=== PATIENT | female | born 1990 | race Caucasian/White ===

== ENCOUNTER 2020-09-28 23:08 | Emergency (ER) | payer MEDICAID ==
[~2020-09-28] VITALS: Ht 157.5 cm; Wt 98.9 kg
[~2020-09-28 23:08] MED LIST: CEPHALEXIN500 MG ORAL; IBUPROFEN600 M1 ORAL; ROBAXIN-750750 MG PO
--- NOTE | 2020-09-28 23:20 | NUR ---
ED Nurse Note: pt from home complaints of abdominal pain, and nausea since 4am after helping somenone move, hx of umbilical hernia post 2016 no other health hx, vitals stable, ambulatory, aox4
[2020-09-28 23:37] VITALS: BP 110/78
--- NOTE | 2020-09-28 23:41 | NUR ---
ED Nurse Note:blood and urine specimen drawn and sent to lab
[2020-09-28 23:48] LABS: APPEARANCE,URINE CLEAR; BILIRUBIN, URINE NEGATIVE (NEGATIVE); GLUCOSE, URINE (UA) NEGATIVE (NEGATIVE); KETONES,URINE NEGATIVE (NEGATIVE); LEUKOCYTE ESTERASE ,URINE 3+ (NEGATIVE); NITRITE,URINE NEGATIVE (NEGATIVE); PH,URINE 6.5 (4.5-8.0); PROTEIN,URINE NEGATIVE (NEGATIVE); UROBILINOGEN,URINE 1 MG/DL (0.0-1.0)
[2020-09-28 23:49] LABS: BASOPHILS % (AUTO) 0.7 % (0.0-2.0); EOSINOPHILS % (AUTO) 5.7 % (0.0-3.0); HEMATOCRIT 42.1 % (37.0-47.0); HEMOGLOBIN 13.8 G/DL (12.0-16.0); LYMPHOCYTES % (AUTO) 47.6 % (20.0-45.0); MEAN CORPUSCULAR VOLUME 86 FL (80-99); MONOCYTES % (AUTO) 5.3 % (1.0-10.0); NEUTROPHILS % (AUTO) 40.8 % (45.0-75.0); PLATELET COUNT 310 K/UL (150-450); RED CELL DISTRIBUTION WIDTH 12.6 % (11.6-14.8); WHITE BLOOD COUNT 11.7 K/UL (4.8-10.8)
--- NOTE | 2020-09-28 23:53 | Emergency Room Report ---
History of Present Illness General Chief Complaint: Abdominal Pain Source: Patient Present Illness HPI 29-year-old obese female with past medical history of umbilical hernia presents emergency department with complaint of diffuse umbilical abdominal pain that started today. Patient states that she was in [place] this morning at 4 AM helping her sister move and she subsequently developed gradually worsening abdominal pain throughout the day. Last p.o. intake was lunch Serbian barbecue). Last bowel movement was today. Denies constipation, diarrhea, vomiting, fever, chills, chest pain, shortness of breath, back pain, hematuria, dysuria, melena, hematochezia, headache or neck pain patient is currently complaining of nausea. She has not vomited today. The patient's symptoms were gradual onset, severity was moderate, duration since 1 day. Quality: Aching Past medical history: Umbilical hernia Past surgical history: Denies Smoking: Denies Alcohol use: Denies Drug use: Denies Review of systems: CONST: No fevers or chills, No night sweats PULMONARY: No productive cough, No shortness of breath CARDIAC: No chest pain, No palpitations GI: No vomiting, No diarrhea , No melena_or_BRBPR : No dysuria, No hematuria, No discharge NEURO: No new_focal_weakness_or_numbness, No confusion, No vision changes 14 point Review of Systems is otherwise negative except per HPI Physical Exam: GENERAL: Awake_alert_ nontoxic, no acute distress Spo2 95% on RA -normal EYES: Extraocular muscles are intact. Conjunctivae clear. Lids without swelling ENT: External nose and ear normal_in_appearance. Oropharynx clear. Head_atraumatic, Moist_oral_mucosa NECK: No JVD. No meningismus. No thyromegaly. Supple. Trachea midline RESP: Normal respiratory effort. Symmetric rise. No stridor. Clear_to_auscul tation_No_rales_No_wheezes CARDIAC: Regular rate and regular rhytm. No_significant pedal edema. ABDOMEN: obese. no (pulsatile) mass. Soft. Nondistended. Nontender_No_rebound_or_guarding. Negative [place] sign. Negative Rovsing's. Negative obturator. No CVA tenderness palpation MSK: Normal muscle tone, without rigidity. Extremities without asymmetric deformity or swelling. SKIN: Warm and dry. No visible cyanosis or pallor NEUROLOGIC: Alert, oriented x3. Motor_and_sensation_grossly_intact. No truncal ataxia. Gait_normal Psych: Normal mood and affect, normal judgment and insight - COORDINATION OF CARE Case was discussed with: Patient Any labs and imaging that were ordered were interpreted as part of the medical decision making: Medical Decision Making/Plan: Differential diagnosis includes cholecystitis, choledocholithiasis, hepatitis, small bowel obstruction, volvulus, AAA, pancreatitis, atypical appendicitis, gastroparesis, gastritis, peptic ulcer disease, among others. Patient is well appearing with stable vital signs. Abdominal exam is non peritoneal with no guarding or rebound. Labs show nonspecific leukocytosis of 11. No left shift. No acidosis. Urinalysis is consistent with urinary tract infection. Patient received Rocephin here in the emergency department. Urine cultures are pending. CT abd/pelvis shows large umbilical hernia 4.7 cm maximal dimension, 2.5 cm at the neck. Fat-containing only. No signs of strangulation. Otherwise unremarkable. ED intervention included morphine, Zofran, and fluids. Antibiotics given. Advise high-fiber diet to alleviate constipation, increase fluid hydration, and weight loss given her morbid obesity compounding her large hernia. The patient denies any bloody stool and has no pain out of proportion to exam, and no significant risk factors for mesenteric ischemia such as atrial fibrillation or severe PAD/PVD (peripheral arterial / vascular disease), thus definitive workup to rule out mesenteric ischemia was not pursued. Patient is afebrile, without any significant tenderness in the RUQ, and a negative [place] sign. The patients presentation does not appear to be consistent with acute cholecystitis and thus definitive imaging to rule it out was not pursued. Pertinent results reviewed with the patient. I educated the patient on the current treatment plan including the risks, benefits, and alternatives. I also discussed the extent and limitations of the current evaluation. The patient expressed understanding and agreement with plan. I recommended PMD follow-up within 1-2 days for referral to general surgery for elective outpatient repair of her large umbilical hernia. Also advised that the patient return to the Emergency Department as soon as possible if they experience any new, persistent, or worsening symptoms. Patient able to tolerate p.o. upon discharge. Allergies: Coded Allergies: No Known Allergies (Unverified , 06/21/20) COVID-19 Screening Contact w/high risk pt: No Experienced COVID-19 symptoms?: No COVID-19 Testing performed CHEMICAL WASTE MANAGEMENT TECHNICIAN: No Patient History Now: No Nursing Documentation-PMH Hx Cardiac Problems: No Hx Hypertension: No Hx Pacemaker: No Hx Asthma: No Hx COPD: No Hx Diabetes: No Hx Cancer: No Hx Gastrointestinal Problems: Yes - umbilical hernia 2016 Hx Dialysis: No History Of Psychiatric Problem: No Hx Neurological Problems: No Hx Cerebrovascular Accident: No Hx Seizures: No Physical Exam Vital Signs Date Time Temp Pulse Resp B/P (MAP) Pulse Ox O2 Delivery O2 Flow Rate FiO2 09/28/20 23:14 97.9 71 20 105/77 (86) 100 Room Air Sp02 EP Interpretation: reviewed, normal Medical Decision Making Diagnostic Impression: Primary Impression: Abdominal pain Additional Impressions: UTI (urinary tract infection) Umbilical hernia Constipation Morbid obesity CT/MRI/US Diagnostic Results CT/MRI/US Diagnostic Results : Impression CT Abdomen and Pelvis With Intravenous Contrast FINDINGS: Lung bases: Unremarkable. No mass. No consolidation. ABDOMEN: Liver: Unremarkable. No mass. Gallbladder and bile ducts: Unremarkable. No calcified stones. No ductal dilation. Pancreas: Unremarkable. No mass. No ductal dilation. Spleen: Unremarkable. No splenomegaly. Adrenals: Unremarkable. No mass. Kidneys and ureters: Unremarkable. No solid mass. No hydronephrosis. Stomach and bowel: Unremarkable. No obstruction. No mucosal thickening. PELVIS: Appendix: No findings to suggest acute appendicitis. Bladder: Unremarkable. No mass. Reproductive: Unremarkable as visualized. ABDOMEN and PELVIS: Intraperitoneal space: Unremarkable. No free air. No significant fluid collection. Bones/joints: No acute fracture. No dislocation. Soft tissues: Large fat-containing periumbilical hernia 4.7 cm maximal dimension, 2.57 ureters at the neck. Vasculature: Unremarkable. No abdominal aortic aneurysm. Lymph nodes: Unremarkable. No enlarged lymph nodes. Other findings: No mass seen. Otherwise unremarkable study. IMPRESSION: 1. No mass seen. 2. Large fat-containing periumbilical hernia 4.7 cm maximal dimension, 2. 57 cm at the neck. 3. Otherwise unremarkable study. Dictated By: Jay Jay Limon MD Last Vital Signs Date Time Temp Pulse Resp B/P (MAP) Pulse Ox O2 Delivery O2 Flow Rate FiO2 09/28/20 23:37 98.2 79 18 110/78 100 Room Air Disposition: HOME, SELF-CARE Admit Decision Time: 02:30 Condition: Stable Scripts Docusate Sodium (DULCOLAX STOOL SOFTENER) 100 Mg Capsule 100 MG PO BID for 10 Days, #20 CAP Prov: Ct Wood.O. 09/29/20 Docusate Sodium* (COLACE*) 100 Mg Capsule 100 MG ORAL TWICE A DAY for 10 Days, #20 CAP Prov: WoodCt zendejas D.O. 09/29/20 Ondansetron Odt* (ZOFRAN ODT*) 4 Mg Tab.rapdis 4 MG BC EVERY 6 HOURS PRN for Nausea & Vomiting, #10 TAB 0 Refills Prov: Gerry Woode Vance.O. 09/29/20 Cephalexin* (KEFLEX*) 500 Mg Capsule 500 MG ORAL EVERY 12 HOURS, #14 CAP 0 Refills Prov: Gerry Woode Vance.O. 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 Lose weight. Eat plenty of fiber. Follow-up with your doctor sooner if your condition requires a more timely c linical reevaluation. Return to the emergency department immediately if you feel that your condition is worsening or if you have any new or concerning symptoms. Review your discharge instructions and take any prescriptions given as instructed. You had a urine culture done to evaluate for specific types of bacteria associated with your urinary infection. You were given an antibiotic that should treat most bacteria that usually occur with a urinary infection, but there is always the possibility of antibiotic resistance. You will receive a telephone call if it is positive. If you do not receive a call, they are likely negative, but you should return to medical records to get your results to be sure, or have your primary doctor obtain them from our hospital, and especially if you are having persistent symptoms. If you are having persistent symptoms and are not able to get a hold of your culture results or your regular doctor you should return to the ER for a reevaluation. [facility] PROVIDES FREE OR LOW-COST HEALTH SERVICES TO PEOPLE WHO CAN SHOW PROOF THAT THEY LIVE IN [facility]. TO FIND MORE CLINICS PARTNERED WITH THE [facility] TO PROVIDE SERVICE, PLEASE CALL . Ct Wood D.O. Sep 28, 2020 23:53
[2020-09-29] MEDS ORDERED: Acetaminophen 500mg (ES) tab ORAL ONE
[2020-09-29 00:04] LABS: ANION GAP 10 mmol/L (5-15); BLOOD UREA NITROGEN 15 mg/dL (7-18); CALCIUM 9.2 MG/DL (8.5-10.1); CARBON DIOXIDE 26 MMOL/L (21-32); CHLORIDE 105 MMOL/L (98-107); CREATININE 0.9 MG/DL (0.55-1.30); POTASSIUM 4.2 MMOL/L (3.5-5.1); SODIUM 141 MMOL/L (136-145)
--- NOTE | 2020-09-29 00:04 | NUR ---
Pt given tylenol 1g for pain. Pt reports worsening of symptoms after water ingestion. Pt reports abd pain that feels like ripping at her umbilical region while having facial grimace. Pt appears in mild distress but is cooperative and calm. IVF NS infusing at this time.
[2020-09-29 00:05] LABS: COLOR,URINE YELLOW; INR 0.9 (0.9-1.1)
[2020-09-29 00:08] LABS: ALANINE AMINOTRANSFERASE 63 U/L (12-78); ALBUMIN 3.9 G/DL (3.4-5.0); ALKALINE PHOSPHATASE 110 U/L (46-116); ASPARTATE AMINO TRANSFERASE 48 U/L (15-37); BILIRUBIN,TOTAL 0.5 MG/DL (0.2-1.0)
[2020-09-29] MEDS ORDERED: cefTRIAXone 1 GM in NS 55 ML IVPB ONE (00:15)
[2020-09-29] MEDS ORDERED: Morphine Sulfate 4mg/ml Inj (IV USE ONLY) IVP ONE (00:30)
[2020-09-29] MEDS ORDERED: CEPHALEXIN500 MG ORAL (00:33)
[2020-09-29] MEDS ORDERED: ONDANSETRON ODT4 MG BC (00:33)
[2020-09-29] MEDS ORDERED: DULCOLAX STOOL100 M1 PO (01:12)
[2020-09-29] MEDS ORDERED: COLACE100 MG ORAL (01:12)
--- NOTE | 2020-09-29 01:30 | Diagnostic Imaging Report ---
EXAM: CT Abdomen and Pelvis With Intravenous Contrast CLINICAL HISTORY: MASS TECHNIQUE: Axial computed tomography images of the abdomen and pelvis with intravenous contrast. CTDI is 14.4 mGy and DLP is 772 mGy-cm. One or more of the following dose reduction techniques were used: automated exposure control, adjustment of the mA and/or kV according to patient size, use of iterative reconstruction technique. Coronal and sagittal reformatted images were created and reviewed. COMPARISON: 08/22/19 FINDINGS: Lung bases: Unremarkable. No mass. No consolidation. ABDOMEN: Liver: Unremarkable. No mass. Gallbladder and bile ducts: Unremarkable. No calcified stones. No ductal dilation. Pancreas: Unremarkable. No mass. No ductal dilation. Spleen: Unremarkable. No splenomegaly. Adrenals: Unremarkable. No mass. Kidneys and ureters: Unremarkable. No solid mass. No hydronephrosis. Stomach and bowel: Unremarkable. No obstruction. No mucosal thickening. PELVIS: Appendix: No findings to suggest acute appendicitis. Bladder: Unremarkable. No mass. Reproductive: Unremarkable as visualized. ABDOMEN and PELVIS: Intraperitoneal space: Unremarkable. No free air. No significant fluid collection. Bones/joints: No acute fracture. No dislocation. Soft tissues: Large fat-containing periumbilical hernia 4.7 cm maximal dimension, 2.57 ureters at the neck. Vasculature: Unremarkable. No abdominal aortic aneurysm. Lymph nodes: Unremarkable. No enlarged lymph nodes. Other findings: No mass seen. Otherwise unremarkable study. IMPRESSION: 1. No mass seen. 2. Large fat-containing periumbilical hernia 4.7 cm maximal dimension, 2. 57 ureters at the neck. 3. Otherwise unremarkable study.
[2020-09-29 01:57] VITALS: BP 132/83
--- NOTE | 2020-09-29 01:59 | NUR ---
Patient was discharge home as EDP ordered. All vital signs were taken within normal range. Patient . All prescriptions and instructions were given to the patient . Patient verbalized understanding. patient left the hospital in stable condition
== END 2020-09-29 02:00 | disposition home or self-care (01) ==
LOC: EMR 23:28
DX: K42.9 Umbilical hernia without obstruction or gangrene (principal); N39.0 Urinary tract infection, site not specified; K59.00 Constipation, unspecified; E66.1 Drug-induced obesity; Z68.39 Body mass index [BMI] 39.0-39.9, adult; D72.829 Elevated white blood cell count, unspecified
CPT/HCPCS: 36415; 74177; 80053; 81003; 83690; 84702; 85025; 85610; 85730; 87086; 96361; 96365; 96375; 96376; J0696; J2270; J2405; J7030; Q9965; Z7502; 99284